=== PATIENT | female | born 1970 | race Caucasian/White ===

== ENCOUNTER 2020-05-24 16:39 | Outpatient (CLI) | payer OTHER, SELFPAY ==
--- NOTE | 2020-05-24 | MR_ITS ---
NOTE: Report was unsigned for reason: Ordering provider was edited. Original Signature date and time was: 05/25/20 @ 820 WS: [id number] MRI RIGHT KNEE HISTORY: RT KNEE PAIN COMPARISON: 04/11/2020 Anterior cruciate ligament: Mild increased signal in the proximal to mid ACL. Small amount of fluid within the tendon and around the tendon sheath consistent with partial tear. No full-thickness tear. Posterior cruciate ligament: Intact. Medial collateral ligament: Intact. Small amount of fluid along the ligament but no ligament tear. Posterior lateral corner structures: Intact. Medial menisci: Mild intrasubstance degeneration in the posterior horn. No tears. Lateral meniscus: Intact. Normal signal, size and shape. Extensor mechanism: Distal quadriceps tendon and patellar tendons are intact. Fluid and soft tissue: Small suprapatellar joint effusion. No loose bodies. No Tobar's cyst. Osseous and articular structures: Patellofemoral compartment: No marrow edema. No cartilage injury. Medial compartment: Mild narrowing medial compartment. Numerous small fissures and defects along the cartilage in the medial compartment. No marrow edema. Lateral compartment: No significant narrowing. Cartilage is intact. There is a very small amount of soft tissue edema adjacent to but not involving the medial collateral ligament within the adjacent subcutaneous fat. There is increase fluid like signal along the MCL. [facility] MR/MR knee RT wo con* [id number] IMPRESSION: 1. Mild MCL sprain. 2. Small suprapatellar joint effusion. 3. Mild narrowing of the medial compartment. 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 4. Mild ACL sprain.
== END 2020-05-24 16:40 | disposition home or self-care (01) ==
PROVIDERS: PCP Family Medicine; Visit Provider Orthopaedic Surgery
DX: S83.411A Sprain of medial collateral ligament of right knee, initial encounter (principal); S83.511A Sprain of anterior cruciate ligament of right knee, initial encounter; M25.461 Effusion, right knee; X58.XXXA Exposure to other specified factors, initial encounter
CPT/HCPCS: 73721